=== PATIENT | female | born 1995 | race Caucasian/White ===

== ENCOUNTER 2019-02-18 18:53 | Emergency (ER) | payer OTHER ==
[2019-02-18 19:00] VITALS: RESP 18
--- NOTE | 2019-02-18 20:27 | XR ---
EXAMINATION TYPE: XR KUB DATE OF EXAM: 02/18/2019 COMPARISON: NONE HISTORY: Chest pain TECHNIQUE: Single view upright FINDINGS: Bowel gas pattern is normal. There is no sign of intestinal obstruction or pneumoperitoneum . Fecal pattern is normal. There are no pathologic calcifications over the kidneys. Lung bases are cl ear. IMPRESSION: Nonacute abdomen.
--- NOTE | 2019-02-18 20:27 | XR ---
EXAMINATION TYPE: XR chest 2V DATE OF EXAM: 02/18/2019 COMPARISON: NONE HISTORY: Chest pain TECHNIQUE: Frontal and lateral views of the chest are obtained. FINDINGS: Heart and mediastinum are normal. Lungs are clear. Diaphragm is normal. Bony thorax appear s normal. IMPRESSION: Normal chest.
[2019-02-18 20:31] LABS: Appearance,Urine Clear (Clear); Bacteria,Urine Rare /hpf; Bilirubin,Urine Negative (Negative); Blood,Urine Moderate (Negative); Color,Urine Yellow; Glucose,Urine (UA) Negative (Negative); Ketones,Urine Negative (Negative); Leukocyte Esterase,Urine Small (Negative); Mucus,Urine Rare /hpf; Nitrite,Urine Negative (Negative); PH, Urine 5.5 (5.0-8.0); Protein,Urine Negative (Negative); RBC,Urine 2 /hpf (0-5); Specific Gravity,Urine 1.016 (1.001-1.035); Squamous Epithelial Cell,Urine 4 /hpf (0-4); Urobilinogen,Urine <2.0 mg/dL (<2.0); WBC,Urine 6 /hpf (0-5)
--- NOTE | 2019-02-18 21:03 | ED ---
General Adult HPI - General Chief complaint: Recheck/Abnormal Lab/Rx Stated complaint: Chest Pain, Abd Pain Time Seen by Provider: 02/18/19 19:05 Source: patient Mode of arrival: ambulatory Limitations: no limitations - History of Present Illness Initial comments: 23-year-old female patient was sent over from [facility] for evaluation of elevated blood pressure. Patient states she initially presented to urgent care due to intermittent abdominal pain for the last 2 weeks. Patient states she has been intermittently having burning discomfort to the abdomen. Patient states she is passing gas and having normal bowel movements. States she has bowel movement roughly every other day. States that she did have 2 periods this month but denies any chance of . She did have negative test at the urgent care. She denies any fever or chills. Denies any nausea or vomiting. Patient states when he told her blood pressure was elevated and that she could have heart attack she became quite anxious and began having chest discomfort as well. Patient believes this may be related to anxiety. Denies any shortness of breath, dizziness, weakness. Patient denies any recent rash, diarrhea, constipation, back pain, numbness, tingling, hematuria, dysuria, urinary urgency, urinary frequency, headache, visual changes, or any other complaints. - Related Data Home Medications Medication Instructions Recorded Confirmed No Known Home Medications 02/18/19 02/18/19 Allergies Allergy/AdvReac Type Severity Reaction Status Date / Time No Known Allergies Allergy Verified 02/18/19 20:13 Review of Systems ROS Statement: Those systems with pertinent positive or pertinent negative responses have been documented in the HPI. ROS Other: All systems not noted in ROS Statement are negative. Past Medical History Past Medical History: No Reported History History of Any Multi-Drug Resistant Organisms: None Reported Past Surgical History: No Surgical Hx Reported Past Psychological History: No Psychological Hx Reported Smoking Status: Never smoker Past Alcohol Use History: None Reported Past Drug Use History: None Reported General Exam Limitations: no limitations General appearance: alert, in no apparent distress, other (Physical well- developed, well-nourished adult female patient in no acute distress. Vital signs upon presentation are temperature 98.6F, pulse 107, respirations 18, blood pressure 113/77, pulse ox 100% on room air.) Eye exam: Present: normal appearance, PERRL, EOMI. Absent: scleral icterus, conjunctival injection, periorbital swelling ENT exam: Present: normal exam, normal oropharynx, mucous membranes moist Respiratory exam: Present: normal lung sounds bilaterally. Absent: respiratory distress, wheezes, rales, rhonchi, stridor Cardiovascular Exam: Present: regular rate, normal rhythm, normal heart sounds. Absent: systolic murmur, diastolic murmur, rubs, gallop, clicks GI/Abdominal exam: Present: soft, normal bowel sounds. Absent: distended, tenderness, guarding, rebound, rigid Neurological exam: Present: alert, oriented X3, CN II-XII intact Psychiatric exam: Present: normal affect, normal mood Skin exam: Present: warm, dry, intact, normal color. Absent: rash Course Vital Signs 02/18/19 02/18/19 18:54 21:15 Temperature 98.6 F 98.2 F Pulse Rate 107 H 90 Respiratory 18 18 Rate Blood Pressure 113/77 129/78 O2 Sat by Pulse 100 100 Oximetry EKG Findings - EKG Comments: EKG Findings:: EKG obtained at 1935 shows normal sinus rhythm with a ventricular rate of 86, IA interval 138, QRS duration 100, QT 380, QTc 454. No evidence of ST elevation or depression. Medical Decision Making - Medical Decision Making 23-year-old female patient presented to the emergency department today for evaluation of chest pain and shortness of breath that started after becoming anxious. Patient was seen by urgent care and evaluated for intermittent and burning abdominal pain. Patient is asymptomatic upon arrival. Vital signs are stable. EKG shows normal sinus rhythm. X-ray of the chest and abdomen were obtained and showed no acute abnormalities. Patient believes symptoms are related to anxiety. We did discuss her abdominal pain and discussed that it could be related to bowel movements. She is instructed to follow-up with her primary care physician should the pain return. Return parameters were discussed in detail. She verbalizes understanding and agrees with this plan. - Lab Data Lab Results 02/18/19 02/18/19 Range/Units 20:08 20:08 Urine Color Yellow Urine Appearance Clear (Clear) Urine pH 5.5 (5.0-8.0) Ur Specific [place] 1.016 (1.001-1.035) Urine Protein Negative (Negative) Urine Glucose (UA) Negative (Negative) Urine Ketones Negative (Negative) Urine Blood Moderate H (Negative) Urine Nitrite Negative (Negative) Urine Bilirubin Negative (Negative) Urine Urobilinogen <2.0 (<2.0) mg/dL Ur Leukocyte Esterase Small H (Negative) Urine RBC 2 (0-5) /hpf Urine WBC 6 H (0-5) /hpf Ur Squamous Epith Cells 4 (0-4) /hpf Urine Bacteria Rare H (None) /hpf Urine Mucus Rare H (None) /hpf Urine HCG, Qual Not Detected (Not Detectd) - Radiology Data Radiology results: report reviewed Two-view x-ray of the chest is obtained. Report was reviewed in its entirety. Impression by Dr. Betancourt shows normal chest. KUB x-ray of the abdomen is obtained. Report was reviewed in its entirety. Impression by Dr. Betancourt shows nonacute abdomen. Disposition Clinical Impression: Anxiety, Abdominal pain Disposition: HOME SELF-CARE Condition: Good Instructions (If sedation given, give patient instructions): Abdominal Pain (ED), Anxiety (ED) Additional Instructions: Follow-up with her primary care physician for recheck in 1-2 days. Return to the emergency department immediately for any new, worsening, or concerning symptoms. Is patient prescribed a controlled substance at d/c from ED?: No Referrals: None,Stated [Primary Care Provider] - 1-2 days Time of Disposition: 21:03
[2019-02-18 21:16] VITALS: BP 129/78; PULSE 90; TEMP 98.2
== END 2019-02-18 21:15 | disposition home or self-care (01) ==
LOC: EC 18:53
DX: F41.9 Anxiety disorder, unspecified (principal); R10.9 Unspecified abdominal pain
CPT/HCPCS: 71046; 74018; 81001; 81025; 93005; 99285

== ENCOUNTER 2020-11-09 23:24 | Inpatient (IN) | payer OTHER ==
[2020-11-09] MEDS ORDERED: SODIUM CHLORIDE 0.9% 1,000 ML IV STA (23:50)
[2020-11-09] MEDS ORDERED: ONDANSETRON 4 MG/2 ML VIAL IVP STA (23:50)
[2020-11-09] MEDS ORDERED: KETOROLAC 15 MG/ML 1 ML VIAL IVP STA (23:50)
[2020-11-09] MEDS ORDERED: HYDROmorphone 0.5 MG/0.5 ML SYRINGE IVP STA (23:50)
--- NOTE | 2020-11-10 00:11 | ED ---
Abdominal Pain HPI - General Chief Complaint: Abdominal Pain Stated Complaint: LT flank pain, vomiting Time Seen by Provider: 11/09/20 23:36 Source: patient Mode of arrival: ambulatory Limitations: no limitations - History of Present Illness Initial Comments: 25 -year-old female patient presents to the emergency department today for evaluation of left flank pain and left-sided abdominal pain. Patient states symptoms started 3-4 days ago and has been persistent. Patient states the pain has moved from the middle of her back around to the left side of her abdomen. States she has had nausea and vomiting associated over last night and through today. Has been unable to keep down any food or fluids today. Reports decreased urine output. Reports brown discoloration to urine. Denies abnormal vaginal bleeding or discharge. Denies taking any medication for her symptoms. She denies any fever or chills. Denies history of similar symptoms. Denies chance of . Patient denies any recent rash, cough, shortness of breath, chest pain, diarrhea, constipation, back pain, numbness, tingling, dizziness, weakness, headache, visual changes, or any other complaints. - Related Data Home Medications Medication Instructions Recorded Confirmed No Known Home Medications 02/18/19 02/18/19 Allergies Allergy/AdvReac Type Severity Reaction Status Date / Time No Known Allergies Allergy Verified 11/09/20 23:32 Review of Systems ROS Statement: Those systems with pertinent positive or pertinent negative responses have been documented in the HPI. ROS Other: All systems not noted in ROS Statement are negative. Past Medical History Past Medical History: No Reported History History of Any Multi-Drug Resistant Organisms: None Reported Past Surgical History: No Surgical Hx Reported Past Psychological History: No Psychological Hx Reported Smoking Status: Never smoker Past Alcohol Use History: None Reported Past Drug Use History: None Reported General Exam Limitations: no limitations General appearance: alert, in no apparent distress, other (This is a well- developed, well-nourished adult female patient in no acute distress.) Eye exam: Present: normal appearance, PERRL, EOMI. Absent: scleral icterus, conjunctival injection, periorbital swelling ENT exam: Present: normal exam, normal oropharynx, mucous membranes moist Respiratory exam: Present: normal lung sounds bilaterally. Absent: respiratory distress, wheezes, rales, rhonchi, stridor Cardiovascular Exam: Present: normal rhythm, tachycardia, normal heart sounds. Absent: systolic murmur, diastolic murmur, rubs, gallop, clicks GI/Abdominal exam: Present: soft, tenderness (mild left-sided), normal bowel sounds. Absent: distended, guarding, rebound, rigid Back exam: Present: normal inspection, CVA tenderness (L). Absent: CVA tenderness (R) Neurological exam: Present: alert, oriented X3, CN II-XII intact Psychiatric exam: Present: normal affect, normal mood Skin exam: Present: warm, dry, intact, normal color. Absent: rash Course Vital Signs 11/09/20 11/10/20 23:28 02:29 Temperature 99.5 F 98.7 F Pulse Rate 110 H 96 Respiratory 19 16 Rate Blood Pressure 134/90 115/76 O2 Sat by Pulse 100 99 Oximetry Medical Decision Making - Medical Decision Making 25-year-old female patient presents to the emergency department today for evaluation of left flank and abdominal pain for the last 4 days. Physical examination did reveal left CVA tenderness mild left abdominal tenderness. Labs reviewed and did reveal white blood cell count 18.1 with neutrophils of 16.1. Potassium is 5.3. Urinalysis shows cloudy appearance with specific gravity 1.041, 1+ protein, 1+ ketones, large amount of blood. Small leukocyte esterase, greater than 182 red blood cells, 19 white blood cells. Rare bacteria. Moderate mucus. HCG is negative. Did discuss the case with on-call urologist Dr. Ni he does recommend admission with IV antibiotics at this time. We will repeat CBC in the morning. Patient was given 2 g of IV Rocephin. She is resting more promptly after IV fluids and pain medication. She is agreeable with this plan. Case discussed with my attending Dr. Aguilar. - Lab Data Result diagrams: 11/10/20 00:25 11/10/20 00:25 Lab Results 11/09/20 11/10/20 11/10/20 Range/Units 23:52 00:25 00:25 WBC 18.1 H (3.8-10.6) k/uL RBC 4.59 (3.80-5.40) m/uL Hgb 14.3 (11.4-16.0) gm/dL Hct 42.7 (34.0-46.0) % MCV 93.1 (80.0-100.0) fL MCH 31.2 (25.0-35.0) pg MCHC 33.5 (31.0-37.0) g/dL RDW 13.2 (11.5-15.5) % Plt Count 185 (150-450) k/uL MPV 8.1 Neutrophils % 89 % Lymphocytes % 5 % Monocytes % 4 % Eosinophils % 1 % Basophils % 0 % Neutrophils # 16.1 H (1.3-7.7) k/uL Lymphocytes # 0.9 L (1.0-4.8) k/uL Monocytes # 0.7 (0-1.0) k/uL Eosinophils # 0.2 (0-0.7) k/uL Basophils # 0.1 (0-0.2) k/uL Sodium 139 (137-145) mmol/L Potassium 5.3 H (3.5-5.1) mmol/L Chloride 104 (98-107) mmol/L Carbon Dioxide 21 L (22-30) mmol/L Anion Gap 14 mmol/L BUN 15 (7-17) mg/dL Creatinine 1.01 (0.52-1.04) mg/dL Est GFR (CKD-EPI)AfAm 88 (>60 ml/min/1.73 sqM) Est GFR (CKD-EPI)NonAf 77 (>60 ml/min/1.73 sqM) Glucose 110 H (74-99) mg/dL Calcium 9.8 (8.4-10.2) mg/dL Total Bilirubin 0.8 (0.2-1.3) mg/dL AST 33 (14-36) U/L ALT 14 (4-34) U/L Alkaline Phosphatase 87 (38-126) U/L Total Protein 8.4 H (6.3-8.2) g/dL Albumin 5.2 H (3.5-5.0) g/dL Lipase 41 (23-300) U/L Urine Color Urine Appearance (Clear) Urine pH (5.0-8.0) Ur Specific [place] (1.001-1.035) Urine Protein (Negative) Urine Glucose (UA) (Negative) Urine Ketones (Negative) Urine Blood (Negative) Urine Nitrite (Negative) Urine Bilirubin (Negative) Urine Urobilinogen (<2.0) mg/dL Ur Leukocyte Esterase (Negative) Urine RBC (0-5) /hpf Urine WBC (0-5) /hpf Ur Squamous Epith Cells (0-4) /hpf Urine Bacteria (None) /hpf Urine Mucus (None) /hpf Urine HCG, Qual (Not Detectd) 11/10/20 11/10/20 Range/Units 00:25 00:25 WBC (3.8-10.6) k/uL RBC (3.80-5.40) m/uL Hgb (11.4-16.0) gm/dL Hct (34.0-46.0) % MCV (80.0-100.0) fL MCH (25.0-35.0) pg MCHC (31.0-37.0) g/dL RDW (11.5-15.5) % Plt Count (150-450) k/uL MPV Neutrophils % % Lymphocytes % % Monocytes % % Eosinophils % % Basophils % % Neutrophils # (1.3-7.7) k/uL Lymphocytes # (1.0-4.8) k/uL Monocytes # (0-1.0) k/uL Eosinophils # (0-0.7) k/uL Basophils # (0-0.2) k/uL Sodium (137-145) mmol/L Potassium (3.5-5.1) mmol/L Chloride (98-107) mmol/L Carbon Dioxide (22-30) mmol/L Anion Gap mmol/L BUN (7-17) mg/dL Creatinine (0.52-1.04) mg/dL Est GFR (CKD-EPI)AfAm (>60 ml/min/1.73 sqM) Est GFR (CKD-EPI)NonAf (>60 ml/min/1.73 sqM) Glucose (74-99) mg/dL Calcium (8.4-10.2) mg/dL Total Bilirubin (0.2-1.3) mg/dL AST (14-36) U/L ALT (4-34) U/L Alkaline Phosphatase (38-126) U/L Total Protein (6.3-8.2) g/dL Albumin (3.5-5.0) g/dL Lipase (23-300) U/L Urine Color Yellow Urine Appearance Cloudy H (Clear) Urine pH 6.5 (5.0-8.0) Ur Specific [place] 1.041 H (1.001-1.035) Urine Protein 1+ H (Negative) Urine Glucose (UA) Negative (Negative) Urine Ketones 1+ H (Negative) Urine Blood Large H (Negative) Urine Nitrite Negative (Negative) Urine Bilirubin Negative (Negative) Urine Urobilinogen 2.0 (<2.0) mg/dL Ur Leukocyte Esterase Small H (Negative) Urine RBC >182 H (0-5) /hpf Urine WBC 19 H (0-5) /hpf Ur Squamous Epith Cells <1 (0-4) /hpf Urine Bacteria Rare H (None) /hpf Urine Mucus Moderate H (None) /hpf Urine HCG, Qual Not Detected (Not Detectd) - Radiology Data Radiology results: report reviewed, image reviewed CT abdomen and pelvis without contrast was obtained. Report was reviewed in its entirety. Impression by Dr. Vazquez shows 4.2 mm distal left ureteral stone noted with proximal [id number] left hydroureteronephrosis, perinephric and periureteral fat stranding. Disposition Clinical Impression: Left ureteral stone, Leukocytosis Disposition: ADMITTED IP TO THIS [facility] Condition: Serious Decision to Admit Reason: Admit from EC Decision Date: 11/10/20 Decision Time: 01:48
[2020-11-10 00:38] LABS: Basophils # (A) 0.1 k/uL (0-0.2); Basophils % (A) 0 %; Eosinophils # (A) 0.2 k/uL (0-0.7); Eosinophils % (A) 1 %; HCT 42.7 % (34.0-46.0); HGB 14.3 gm/dL (11.4-16.0); Lymphocytes # (A) 0.9 k/uL (1.0-4.8); Lymphocytes % (A) 5 %; MCH 31.2 pg (25.0-35.0); MCHC 33.5 g/dL (31.0-37.0); MCV 93.1 fL (80.0-100.0); Mean Platelet Volume 8.1; Monocytes # (A) 0.7 k/uL (0-1.0); Monocytes % (A) 4 %; Neutrophils # (A) 16.1 k/uL (1.3-7.7); Neutrophils % (A) 89 %; Platelet Count 185 k/uL (150-450); RBC 4.59 m/uL (3.80-5.40); RDW 13.2 % (11.5-15.5); WBC 18.1 k/uL (3.8-10.6)
[2020-11-10 00:49] LABS: Appearance,Urine Cloudy (Clear); Bacteria,Urine Rare /hpf; Bilirubin,Urine Negative (Negative); Blood,Urine Large (Negative); Color,Urine Yellow; Glucose,Urine (UA) Negative (Negative); Ketones,Urine 1+ (Negative); Leukocyte Esterase,Urine Small (Negative); Mucus,Urine Moderate /hpf; Nitrite,Urine Negative (Negative); PH, Urine 6.5 (5.0-8.0); Protein,Urine 1+ (Negative); RBC,Urine >182 /hpf (0-5); Specific Gravity,Urine 1.041 (1.001-1.035); Squamous Epithelial Cell,Urine <1 /hpf (0-4); WBC,Urine 19 /hpf (0-5)
[2020-11-10 00:55] LABS: Calcium 9.8 mg/dL (8.4-10.2); Total Bilirubin 0.8 mg/dL (0.2-1.3)
[2020-11-10 01:12] LABS: Potassium 5.3 mmol/L (3.5-5.1); Total Protein 8.4 g/dL (6.3-8.2)
[2020-11-10 01:13] LABS: Albumin 5.2 g/dL (3.5-5.0)
--- NOTE | 2020-11-10 01:29 | CT ---
EXAM: CT Abdomen and Pelvis Without Intravenous Contrast CLINICAL HISTORY: ITS.REASON CT Reason: Left flank pain TECHNIQUE: Axial computed tomography images of the abdomen and pelvis without intravenous contrast. CTDI is 6.27 mGy and DLP is 351.8 mGy-cm. This CT exam was performed using one or more of the following dose reduction techniques: automated exposure control, adjustment of the mA and/or kV according to patient size, and/or use of iterative reconstruction technique. COMPARISON: No relevant prior studies available. FINDINGS: Lung bases: Unremarkable. No mass. No consolidation. ABDOMEN: Liver: Unremarkable. Gallbladder and bile ducts: Unremarkable. No calcified stones. No ductal dilation. Pancreas: Unremarkable. No ductal dilation. Spleen: Unremarkable. No splenomegaly. Adrenals: Unremarkable. No mass. Kidneys and ureters: 4.2 mm distal left ureteral stone noted with proximal mild to moderate left hydroureteronephrosis, perinephric and periureteral fat stranding. The right kidney is unremarkable with potential punctate nonobstructive nephrolithiasis suggested inferiorly. No right hydronephrosis. Stomach and bowel: Evaluation of the bowel mucosa is slightly limited without contrast; however, no definite focal asymmetry suggested. No evidence for bowel obstruction. PELVIS: Appendix: No findings to suggest acute appendicitis. Bladder: The bladder is decompressed, limiting evaluation. No definite bladder wall thickening. No stones. Reproductive: Unremarkable as visualized. ABDOMEN and PELVIS: Intraperitoneal space: Unremarkable. No free air. No significant fluid collection. Bones/joints: No acute fracture. No dislocation. Soft tissues: Unremarkable. Vasculature: Unremarkable. No abdominal aortic aneurysm. Lymph nodes: Unremarkable. No enlarged lymph nodes. IMPRESSION: 4.2 mm distal left ureteral stone noted with proximal mild to moderate left hydroureteronephrosis, perinephric and periureteral fat stranding.
[2020-11-10] MEDS ORDERED: NALOXONE 0.4 MG/ML 1 ML VIAL IV PRN (01:46)
[2020-11-10] MEDS ORDERED: HYDROmorphone 0.5 MG/0.5 ML SYRINGE IVP PRN (01:46)
[2020-11-10] MEDS ORDERED: KETOROLAC 15 MG/ML 1 ML VIAL IVP PRN (01:46)
[2020-11-10] MEDS ORDERED: ONDANSETRON 4 MG/2 ML VIAL IVP PRN (01:46)
[2020-11-10] MEDS: SODIUM CHLORIDE 0.9% 1,000 ML IV SCH ×2 (02:15→15:35)
[2020-11-10] MEDS ORDERED: TAMSULOSIN 0.4 MG CAP.ER.24H PO SCH (08:30)
[2020-11-10 09:53] VITALS: BMI 24.3
--- NOTE | 2020-11-10 12:52 | P.GSHP ---
History of Present Illness H&P Date: 11/10/20 Chief Complaint: left ureteral calculi 25 yo female with hx of 4 mm left sided ureteral stone. She presented to the ED with left flank pain, she underwent a CT that showed a 4 mm stone, on presentation she was tachycardic, had leucocytosis at 18.1 and her UA was concerning for UTI, no previous hx of kidney stones. Denies any dysuria or gross hematuria. Indicates her pain has improved this am. But indicates she has been complaining of weakness and fatigue. - Constitutional Constitutional: Reports fatigue, Reports weakness, Denies chills, Denies fever - EENT Ears, nose, mouth and throat: Denies headache, Denies sore throat - Cardiovascular Cardiovascular: Denies chest pain, Denies shortness of breath - Respiratory Respiratory: Denies cough, Denies 7 - Gastrointestinal Gastrointestinal: Denies abdominal pain, Denies diarrhea, Denies nausea, Denies vomiting - Genitourinary (Female) Genitourinary: Reports flank pain - Genitourinary (Male) Genitourinary: Reports flank pain - Musculoskeletal Musculoskeletal: Denies myalgias - Integumentary Integumentary: Denies pruritus, Denies rash - Neurological Neurological: Denies numbness, Denies weakness Past Medical History Past Medical History: No Reported History History of Any Multi-Drug Resistant Organisms: None Reported Past Surgical History: No Surgical Hx Reported Past Psychological History: No Psychological Hx Reported Smoking Status: Never smoker Past Alcohol Use History: None Reported Past Drug Use History: None Reported Medications and Allergies Home Medications Medication Instructions Recorded Confirmed Type Sertraline [Zoloft] 200 mg PO DAILY 11/10/20 11/10/20 History Allergies Allergy/AdvReac Type Severity Reaction Status Date / Time No Known Allergies Allergy Verified 11/10/20 08:34 Surgical - Exam Vital Signs Temp Pulse Resp BP Pulse Ox 99.5 F 110 H 19 134/90 100 11/09/20 23:28 11/09/20 23:28 11/09/20 23:28 11/09/20 23:28 11/09/20 23:28 - General well developed, well nourished, no distress, moderate pain - Eyes PERRL, normal ocular movement - ENT normal nares, normal mucosa - Respiratory normal expansion, normal respiratory effort - Abdomen Abdomen: soft, non tender - Psychiatric oriented to time, oriented to person, oriented to place Results - Labs 11/10/20 00:25 11/10/20 00:25 Abnormal Lab Results - Last 24 Hours (Table) 11/10/20 11/10/20 11/10/20 Range/Units 00:25 00:25 00:25 WBC 18.1 H (3.8-10.6) k/uL Neutrophils # 16.1 H (1.3-7.7) k/uL Lymphocytes # 0.9 L (1.0-4.8) k/uL Potassium 5.3 H (3.5-5.1) mmol/L Carbon Dioxide 21 L (22-30) mmol/L Glucose 110 H (74-99) mg/dL Total Protein 8.4 H (6.3-8.2) g/dL Albumin 5.2 H (3.5-5.0) g/dL Urine Appearance Cloudy H (Clear) Ur Specific [place] 1.041 H (1.001-1.035) Urine Protein 1+ H (Negative) Urine Ketones 1+ H (Negative) Urine Blood Large H (Negative) Ur Leukocyte Esterase Small H (Negative) Urine RBC >182 H (0-5) /hpf Urine WBC 19 H (0-5) /hpf Urine Bacteria Rare H (None) /hpf Urine Mucus Moderate H (None) /hpf Microbiology - Last 24 Hours (Table) 11/10/20 00:25 Urine Culture - Preliminary Urine,Voided Diabetes panel 11/10/20 Range/Units 00:25 Sodium 139 (137-145) mmol/L Potassium 5.3 H (3.5-5.1) mmol/L Chloride 104 (98-107) mmol/L Carbon Dioxide 21 L (22-30) mmol/L BUN 15 (7-17) mg/dL Creatinine 1.01 (0.52-1.04) mg/dL Glucose 110 H (74-99) mg/dL Calcium 9.8 (8.4-10.2) mg/dL AST 33 (14-36) U/L ALT 14 (4-34) U/L Alkaline Phosphatase 87 (38-126) U/L Total Protein 8.4 H (6.3-8.2) g/dL Albumin 5.2 H (3.5-5.0) g/dL Calcium panel 11/10/20 Range/Units 00:25 Calcium 9.8 (8.4-10.2) mg/dL Albumin 5.2 H (3.5-5.0) g/dL Pituitary panel 11/10/20 Range/Units 00:25 Sodium 139 (137-145) mmol/L Potassium 5.3 H (3.5-5.1) mmol/L Chloride 104 (98-107) mmol/L Carbon Dioxide 21 L (22-30) mmol/L BUN 15 (7-17) mg/dL Creatinine 1.01 (0.52-1.04) mg/dL Glucose 110 H (74-99) mg/dL Calcium 9.8 (8.4-10.2) mg/dL Adrenal panel 11/10/20 Range/Units 00:25 Sodium 139 (137-145) mmol/L Potassium 5.3 H (3.5-5.1) mmol/L Chloride 104 (98-107) mmol/L Carbon Dioxide 21 L (22-30) mmol/L BUN 15 (7-17) mg/dL Creatinine 1.01 (0.52-1.04) mg/dL Glucose 110 H (74-99) mg/dL Calcium 9.8 (8.4-10.2) mg/dL Total Bilirubin 0.8 (0.2-1.3) mg/dL AST 33 (14-36) U/L ALT 14 (4-34) U/L Alkaline Phosphatase 87 (38-126) U/L Total Protein 8.4 H (6.3-8.2) g/dL Albumin 5.2 H (3.5-5.0) g/dL Assessment and Plan Assessment: 25 yo female presents to the ED with 4 mm left sided ureteral stone, on presentation she was tachycardic, had elevation in white count is 18.1. Her UA is concerning for UTI. Discussed with her given this finding I recommend proceeding stent placement. Discussed the risk of bleeding and infection. Discussed with her this is not a definitive treatment for stone, and she will need a ureteroscopy in the future. Plan: OR for left stent placement
[2020-11-10] MEDS ORDERED: IV FLUID CONTINUATION 1,000 ML IV ONE ×2 (12:57)
[2020-11-10] MEDS ORDERED: PROPOFOL 10 MG/ML 20 ML VIAL IV ONE (13:10)
[2020-11-10] MEDS ORDERED: KETAMINE 10 MG/ML 20 ML VIAL ONE (13:10)
[2020-11-10] MEDS ORDERED: MIDAZOLAM 2 MG/2 ML VIAL ONE (13:10)
[2020-11-10] MEDS ORDERED: fentaNYL (PF) 50 MCG/ML 2 ML AMP ONE (13:10)
[2020-11-10] MEDS ORDERED: ONDANSETRON 4 MG/2 ML VIAL ONE (13:10)
[2020-11-10] MEDS ORDERED: SODIUM CHLORIDE 0.9% 50 ML with GENTAMICIN 80 MG IV ONE ×2 (13:19)
[2020-11-10 13:38] VITALS: TEMP 97
--- NOTE | 2020-11-10 13:49 | P.OP ---
Date of Procedure: 11/10/20 Preoperative Diagnosis: Left ureteral calculi Postoperative Diagnosis: Same Procedure(s) Performed: Cystoscopy, left ureteral stent placement Implants: 6-Tunisian by 24 cm stent Anesthesia: UBALDO Surgeon: Lee Ni Estimated Blood Loss (ml): 1 Pathology: none sent Condition: stable Disposition: PACU Indications for Procedure: This is a 25-year-old female that presented with 4.6 mm left-sided ureteral stone. She had evidence of UTI, leukocytosis on presentation. Discussed with her the option of stent placement given her symptoms. Discussed the risk which includes but not limited to bleeding, infection. Discussed with her also this is not a permanent fix for her stone and she will require ureteroscopy in the future. She understood all the risk and agreed to proceed with left-sided stent placement Description of Procedure: Patient was brought to the operating room, sedation was administered. A cystoscopy fitted with 22-Tunisian sheath was inserted per urethra, cystoscopy was performed showed no abnormality within the bladder. Attention was then carried to the left ureteral orifice which was intubated with a 6-Tunisian open-ended catheter. A sensor wire was advanced through the catheter and the catheter was removed with the wire in place. Next a ureteral stent was passed over the wire, the proximal curl was visualized on fluoroscopy and the distal curl was visualized using the cystoscope. Cloudy urine drained from the stent. The patient tolerated the procedure well was taken to PACU in stable condition
--- NOTE | 2020-11-10 13:57 | FL ---
Fluoroscopy History: LT STENT PLACEMENT. Fluoroscopy provided for left stent placement.
--- NOTE | 2020-11-10 16:22 | P.DS ---
Providers Date of admission: 11/10/20 01:48 Attending physician: Lee Ni MD Primary care physician: Stated None Hospital Course: 25 yo female the presented to the hospital on 11/09 with left sided ureteral stone and UTI. She was admitted to the hospital, She underwent left sided stent placement on 11/10, please see op noted dated 11/10 for surgery details. She was discharged home following surgery with 10 days of Keflex. She will f/u in clinic in one week, at that time she will be set up for a ureteroscopy. Patient Condition at Discharge: Serious Plan - Discharge Summary Discharge Rx Participant: Yes New Discharge Prescriptions: New Ibuprofen 600 mg PO Q8H PRN #30 tab PRN Reason: Pain Cephalexin [Keflex] 500 mg PO Q8HR 10 Days #30 cap Ibuprofen 600 mg PO Q8H PRN #30 tab PRN Reason: Pain Cephalexin [Keflex] 500 mg PO Q6HR 1 Days #4 cap Cephalexin [Keflex] 500 mg PO Q8HR #30 cap No Action Sertraline [Zoloft] 200 mg PO DAILY Discharge Medication List Cephalexin [Keflex] 500 mg PO Q6HR 1 Days #4 cap 11/10/20 [Rx] Cephalexin [Keflex] 500 mg PO Q8HR #30 cap 11/10/20 [Rx] Cephalexin [Keflex] 500 mg PO Q8HR 10 Days #30 cap 11/10/20 [Rx] Ibuprofen 600 mg PO Q8H PRN #30 tab 11/10/20 [Rx] Ibuprofen 600 mg PO Q8H PRN #30 tab 11/10/20 [Rx] Sertraline [Zoloft] 200 mg PO DAILY 11/10/20 [History] Follow up Appointment(s)/Referral(s): Lee Ni MD [STAFF PHYSICIAN] - 1 Week None,Stated [Primary Care Provider] - 1-2 days Patient Instructions/Handouts: Ureteral Stent Placement (DC) Activity/Diet/Wound Care/Special Instructions: Increase fluid intake You may see some blood in the urine
[2020-11-10 17:23] VITALS: BP 103/66; PULSE 84; RESP 20
== END 2020-11-10 18:07 | disposition home or self-care (01) | DRG 660 ==
LOC: EC 23:24 → 4SSUR 11-10 01:48
PROVIDERS: ADMIT Urology; ATTEND Urology
PROC: 0T778DZ Dilation of Left Ureter with Intraluminal Device, Via Natural or Artificial Opening Endoscopic (ICD-10-PCS; principal; 2020-11-10 12:44)
DX: N20.1 Calculus of ureter (principal); N13.6 Pyonephrosis; Z20.822 Contact with and (suspected) exposure to COVID-19; Z79.899 Other long term (current) drug therapy
CPT/HCPCS: 36415; 74176; 80053; 81001; 81003; 81025; 83690; 85025; 87040; 87086; 87635; 96361; 96365; 96375; 99285

== ENCOUNTER 2020-11-29 12:15 | Day surgery (SDC) | payer OTHER ==
[2020-11-26 15:24] VITALS: BMI 24.4
--- NOTE | 2020-11-28 22:57 | P.HPIHPCON ---
History of Present Illness H&P Date: 11/28/20 Chief Complaint: left ureteral stone Ms Simon is a 25 yo female with hx of 4 mm left distal ureteral stone. She is S/P ureteral stent placement on 11/10. She presents today for definitive stone management. Discussed with her the option of ureteroscopy with holmium laser. discussed the risk of bleeding, infection and injury to the ureter. She understood all the risk and agreed to proceed with left sided ureteroscopy with holmium laser lithotripsy and stone basketting and possible stent placement Consent for Procedure: I have explained the operation/procedure to the patient, including the risks, benefits, side effects, alternative therapies (including not receiving the proposed treatment or service), the likelihood of the patient achieving his/her goals, and potential recuperation problems for the procedure/sedation/analgesia, as well as any blood products, if indicated. I also explained to the patient the risks, benefits and side effects of the alternatives, as well as the risks related to not receiving the proposed procedure, care, treatment, or services. Past Medical History Past Medical History: No Reported History Additional Past Medical History / Comment(s): kidney stones History of Any Multi-Drug Resistant Organisms: None Reported Past Surgical History: No Surgical Hx Reported Additional Past Surgical History / Comment(s): cystoscopy w/left ureteral stent 11-10-20 Past Anesthesia/Blood Transfusion Reactions: No Reported Reaction Smoking Status: Never smoker - Past Family History Mother Family Medical History: No Reported History Medications and Allergies Home Medications Medication Instructions Recorded Confirmed Type Ibuprofen 600 mg PO Q8H PRN #30 tab 11/10/20 11/26/20 Rx Sertraline [Zoloft] 200 mg PO HS 11/10/20 11/26/20 History Allergies Allergy/AdvReac Type Severity Reaction Status Date / Time No Known Allergies Allergy Verified 11/26/20 15:24 Surgical - Exam - General well nourished, no distress, no pain - Respiratory normal expansion, normal respiratory effort - Abdomen Abdomen: soft, non tender Assessment and Plan Assessment: 25 yo female with hx of 4mm left distal stone -OR for left sided ureteroscopy with holmium laser lithotripsy and stone basketting and possible stent placement
[~2020-11-29 12:15] MED LIST: DEXAMETHASONE SOD PHOSPHATE 4 MG/ML 1 ML VIAL IV ONE; HYDROmorphone 0.5 MG/0.5 ML SYRINGE IVP PRN; LACTATED RINGERS 1,000 ML IV SCH; LIDOCAINE 1% (10MG/ML) FOR IV START INTRADERMA PRN; ONDANSETRON 4 MG/2 ML VIAL IVP ONE; SCOPOLAMINE 1.5MG/72HR PATCH TRANSDERM ONE
--- NOTE | 2020-11-29 13:27 | XR ---
EXAMINATION TYPE: XR KUB DATE OF EXAM: 11/29/2020 COMPARISON: 02/18/2019 HISTORY: Pain TECHNIQUE: Single supine KUB image of the abdomen is obtained FINDINGS: Small bowel demonstrates no evidence for dilatation or air fluid levels. Gas and fecal material is seen in non-distended colon. No convincing evidence for pneumoperitoneum. No unusual calcifications. Double-J ureteral stent is noted on the left. The lung bases are clear. The osseous structures are intact. IMPRESSION: 1. Overall nonobstructive bowel gas pattern.
[2020-11-29] MEDS ORDERED: MIDAZOLAM 2 MG/2 ML VIAL IV ONE (13:55)
[2020-11-29] MEDS ORDERED: MIDAZOLAM 2 MG/2 ML VIAL ONE (15:07)
[2020-11-29] MEDS ORDERED: PROPOFOL 10 MG/ML 20 ML VIAL IV ONE (15:07)
[2020-11-29] MEDS ORDERED: LIDOCAINE 1% INJ 10MG/ML (20 ML MDV) ONE (15:07)
[2020-11-29] MEDS ORDERED: fentaNYL (PF) 50 MCG/ML 2 ML AMP ONE (15:07)
[2020-11-29] MEDS ORDERED: SUCCINYLCHOLINE CHLORIDE 100 MG/5 ML SYR IV ONE (15:07)
[2020-11-29] MEDS ORDERED: LACTATED RINGERS 1,000 ML IV ONE (15:40)
[2020-11-29] MEDS ORDERED: IOPAMIDOL-370 50ML BTL MISCELLANE ONE (15:40)
--- NOTE | 2020-11-29 15:56 | P.OP ---
Date of Procedure: 11/29/20 Preoperative Diagnosis: Left ureteral stone Postoperative Diagnosis: Same Procedure(s) Performed: Cystoscopy, left ureteroscopy, holmium laser lithotripsy, stone basketing, retrograde pyelogram and stent removal Implants: None Anesthesia: TYA Surgeon: Lee Ni Estimated Blood Loss (ml): 1 Pathology: other (Left ureteral stone) Condition: stable Disposition: PACU Indications for Procedure: Ms Simon is a 25 yo female with hx of 4 mm left distal ureteral stone. She is S/P ureteral stent placement on 11/10. She presents today for definitive stone management. Discussed with her the option of ureteroscopy with holmium laser. discussed the risk of bleeding, infection and injury to the ureter. She understood all the risk and agreed to proceed with left sided ureteroscopy with holmium laser lithotripsy and stone basketting and possible stent placement Operative Findings: Midureteral stone Description of Procedure: Patient was brought to the operating room, general anesthesia was induced. She was prepped and draped in sterile fashion and placed in dorsal lithotomy position. A cystoscopy fitted with a 21-[place] sheath was inserted per urethra, cystoscopy was performed showed no abnormality within the bladder. Attention was then carried to the left ureteral orifice, the stent was grasped and removed intact. At this time a semirigid ureteroscope was inserted per urethra and advanced up the left ureteral orifice, the stone was encountered in the mid ureter. Using the holmium laser stone was fragmented into small fragments, sizable fragments were removed using a stone basket. at this time the ureteroscope was advanced all the way up to the UPJ which showed no evidence of stone fragments or any additional stones. Retrograde pyelogram was performed through the ureteroscope which showed no additional filling defect. Pullback ureteroscopy was performed showed no sizable fragments or injury to the ureter. The bladder was emptied at the end of the case. The stone was sent for analysis. The patient tolerated the procedure well was taken to PACU in stable condition
[2020-11-29 16:10] VITALS: TEMP 97.4
--- NOTE | 2020-11-29 16:34 | FL ---
Fluoroscopy INDICATION: Cystoscopy with lithotripsy FINDINGS: Fluoroscopy time: 11 seconds. Images obtained: 1. IMPRESSIONS: 1. Documentation of fluoroscopy.
[2020-11-29 17:09] VITALS: RESP 16
[2020-11-29 17:53] VITALS: BP 113/76; PULSE 81
== END 2020-11-29 18:07 | disposition home or self-care (01) ==
LOC: OR 12:15
PROVIDERS: ATTEND Urology
DX: N20.1 Calculus of ureter (principal); Z87.442 Personal history of urinary calculi; Z96.0 Presence of urogenital implants; F41.9 Anxiety disorder, unspecified; Z79.899 Other long term (current) drug therapy
CPT/HCPCS: 84132; 82365; 74420; 74018; 52353; J2250; J1100; J0690; J2405; J2001; J3010; J0330; J2704; Q9967

== ENCOUNTER 2021-07-17 15:29 | Emergency (ER) | payer OTHER ==
[2021-07-17 16:18] VITALS: RESP 18; TEMP 98.1
[2021-07-17 17:10] LABS: Appearance,Urine Cloudy (Clear); Bacteria,Urine Many /hpf; Bilirubin,Urine Negative (Negative); Blood,Urine Large (Negative); Color,Urine Yellow; Glucose,Urine (UA) Negative (Negative); Ketones,Urine Negative (Negative); Leukocyte Esterase,Urine Large (Negative); Mucus,Urine Few /hpf; Nitrite,Urine Negative (Negative); PH, Urine 6.5 (5.0-8.0); Protein,Urine Trace (Negative); RBC,Urine 136 /hpf (0-5); Specific Gravity,Urine 1.025 (1.001-1.035); Squamous Epithelial Cell,Urine 1 /hpf (0-4); WBC,Urine 54 /hpf (0-5)
[2021-07-17] MEDS ORDERED: SODIUM CHLORIDE 0.9% 1,000 ML IV STA (19:53)
[2021-07-17] MEDS ORDERED: KETOROLAC 15 MG/ML 1 ML VIAL IVP STA (19:53)
--- NOTE | 2021-07-17 20:03 | ED ---
General Adult HPI - General Chief complaint: Abdominal Pain Stated complaint: Blood in Urine Time Seen by Provider: 07/17/21 19:12 Source: patient, RN notes reviewed Mode of arrival: ambulatory Limitations: no limitations - History of Present Illness Initial comments: 26-year-old female presents to the emergency room for a chief complaint of abdominal pain. Patient has right lower quadrant abdominal pain radiating to her back. This started earlier this morning. She has also had blood in her urine with clots. Patient had have a kidney stone removed in the past and didn't know she had a until it became infected. Patient is concerned she could've another kidney stone. Patient's sister is afraid to go to work without knowing what's going on with her and wants a CAT scan.Patient has no other complaints at this time including shortness of breath, chest pain, nausea or vomiting, headache, or visual changes. - Related Data Home Medications Medication Instructions Recorded Confirmed Sertraline [Zoloft] 200 mg PO HS 11/10/20 11/29/20 Previous Rx's Medication Instructions Recorded Ibuprofen 600 mg PO Q8H PRN #30 tab 11/10/20 Cephalexin [Keflex] 500 mg PO Q6HR 1 Days #4 cap 11/29/20 Cephalexin [Keflex] 500 mg PO BID 7 Days #14 cap 07/17/21 Allergies Allergy/AdvReac Type Severity Reaction Status Date / Time No Known Allergies Allergy Verified 07/17/21 16:15 Review of Systems ROS Statement: Those systems with pertinent positive or pertinent negative responses have been documented in the HPI. ROS Other: All systems not noted in ROS Statement are negative. Past Medical History Past Medical History: No Reported History Additional Past Medical History / Comment(s): kidney stones History of Any Multi-Drug Resistant Organisms: None Reported Past Surgical History: No Surgical Hx Reported Additional Past Surgical History / Comment(s): cystoscopy w/left ureteral stent 2 Past Anesthesia/Blood Transfusion Reactions: No Reported Reaction Past Psychological History: Anxiety, Depression Smoking Status: Never smoker Past Alcohol Use History: None Reported Past Drug Use History: None Reported - Past Family History Mother Family Medical History: No Reported History General Exam Limitations: no limitations General appearance: alert, in no apparent distress Head exam: Present: atraumatic Eye exam: Present: normal appearance, PERRL, EOMI. Absent: scleral icterus ENT exam: Present: normal exam, mucous membranes moist Neck exam: Present: normal inspection, full ROM. Absent: meningismus Respiratory exam: Present: normal lung sounds bilaterally. Absent: respiratory distress, wheezes Cardiovascular Exam: Present: regular rate, normal rhythm, normal heart sounds GI/Abdominal exam: Present: soft, normal bowel sounds. Absent: distended, tenderness Back exam: Absent: CVA tenderness (R), CVA tenderness (L) Course Vital Signs 07/17/21 16:15 Temperature 98.1 F Pulse Rate 104 H Respiratory 18 Rate Blood Pressure 141/76 O2 Sat by Pulse 99 Oximetry Medical Decision Making - Medical Decision Making Vitals are stable. Patient is well-appearing. No significant abdominal tenderness. CBC CMP and a marble. Urinalysis does show 54 white blood cells as well as [address] abdomen and pelvis however does not show acute abnormality. There is a small 2.3 cm right ovarian cyst. Patient's pain is a 1 out of 10. Not consistent with torsion. Patient will be treated for urinary tract infection as this is likely causing her hematuria. Patient's pain is likely multifactorial with urinary tract infection and cyst. At this time lance ent can be discharged home with primary care follow-up but is aware she needs to repeat a urine sample to ensure that the blood is resolving. - Lab Data Result diagrams: 07/17/21 20:17 07/17/21 20:17 Lab Results 07/17/21 07/17/21 07/17/21 Range/Units 16:39 16:39 20:17 WBC 10.1 (3.8-10.6) k/uL RBC 4.23 (3.80-5.40) m/uL Hgb 13.7 (11.4-16.0) gm/dL Hct 40.9 (34.0-46.0) % MCV 96.6 (80.0-100.0) fL MCH 32.3 (25.0-35.0) pg MCHC 33.5 (31.0-37.0) g/dL RDW 13.1 (11.5-15.5) % Plt Count 218 (150-450) k/uL MPV 8.0 Neutrophils % 74 % Lymphocytes % 18 % Monocytes % 4 % Eosinophils % 2 % Basophils % 1 % Neutrophils # 7.5 (1.3-7.7) k/uL Lymphocytes # 1.8 (1.0-4.8) k/uL Monocytes # 0.4 (0-1.0) k/uL Eosinophils # 0.2 (0-0.7) k/uL Basophils # 0.1 (0-0.2) k/uL Sodium (137-145) mmol/L Potassium (3.5-5.1) mmol/L Chloride (98-107) mmol/L Carbon Dioxide (22-30) mmol/L Anion Gap mmol/L BUN (7-17) mg/dL Creatinine (0.52-1.04) mg/dL Est GFR (CKD-EPI)AfAm (>60 ml/min/1.73 sqM) Est GFR (CKD-EPI)NonAf (>60 ml/min/1.73 sqM) Glucose (74-99) mg/dL Calcium (8.4-10.2) mg/dL Total Bilirubin (0.2-1.3) mg/dL AST (14-36) U/L ALT (4-34) U/L Alkaline Phosphatase (38-126) U/L Total Protein (6.3-8.2) g/dL Albumin (3.5-5.0) g/dL Amylase (30-110) U/L Lipase (23-300) U/L Urine Color Yellow Urine Appearance Cloudy H (Clear) Urine pH 6.5 (5.0-8.0) Ur Specific [place] 1.025 (1.001-1.035) Urine Protein Trace H (Negative) Urine Glucose (UA) Negative (Negative) Urine Ketones Negative (Negative) Urine Blood Large H (Negative) Urine Nitrite Negative (Negative) Urine Bilirubin Negative (Negative) Urine Urobilinogen 2.0 (<2.0) mg/dL Ur Leukocyte Esterase Large H (Negative) Urine RBC 136 H (0-5) /hpf Urine WBC 54 H (0-5) /hpf Ur Squamous Epith Cells 1 (0-4) /hpf Urine Bacteria Many H (None) /hpf Urine Mucus Few H (None) /hpf Urine HCG, Qual Not Detected (Not Detectd) 07/17/21 Range/Units 20:17 WBC (3.8-10.6) k/uL RBC (3.80-5.40) m/uL Hgb (11.4-16.0) gm/dL Hct (34.0-46.0) % MCV (80.0-100.0) fL MCH (25.0-35.0) pg MCHC (31.0-37.0) g/dL RDW (11.5-15.5) % Plt Count (150-450) k/uL MPV Neutrophils % % Lymphocytes % % Monocytes % % Eosinophils % % Basophils % % Neutrophils # (1.3-7.7) k/uL Lymphocytes # (1.0-4.8) k/uL Monocytes # (0-1.0) k/uL Eosinophils # (0-0.7) k/uL Basophils # (0-0.2) k/uL Sodium 138 (137-145) mmol/L Potassium 4.6 (3.5-5.1) mmol/L Chloride 106 (98-107) mmol/L Carbon Dioxide 22 (22-30) mmol/L Anion Gap 10 mmol/L BUN 10 (7-17) mg/dL Creatinine 0.68 (0.52-1.04) mg/dL Est GFR (CKD-EPI)AfAm >90 (>60 ml/min/1.73 sqM) Est GFR (CKD-EPI)NonAf >90 (>60 ml/min/1.73 sqM) Glucose 94 (74-99) mg/dL Calcium 9.6 (8.4-10.2) mg/dL Total Bilirubin 0.5 (0.2-1.3) mg/dL AST 27 (14-36) U/L ALT 12 (4-34) U/L Alkaline Phosphatase 91 (38-126) U/L Total Protein 7.4 (6.3-8.2) g/dL Albumin 4.5 (3.5-5.0) g/dL Amylase 67 (30-110) U/L Lipase 67 (23-300) U/L Urine Color Urine Appearance (Clear) Urine pH (5.0-8.0) Ur Specific [place] (1.001-1.035) Urine Protein (Negative) Urine Glucose (UA) (Negative) Urine Ketones (Negative) Urine Blood (Negative) Urine Nitrite (Negative) Urine Bilirubin (Negative) Urine Urobilinogen (<2.0) mg/dL Ur Leukocyte Esterase (Negative) Urine RBC (0-5) /hpf Urine WBC (0-5) /hpf Ur Squamous Epith Cells (0-4) /hpf Urine Bacteria (None) /hpf Urine Mucus (None) /hpf Urine HCG, Qual (Not Detectd) Disposition Clinical Impression: Ovarian cyst, UTI (urinary tract infection) Disposition: HOME SELF-CARE Condition: Good Instructions (If sedation given, give patient instructions): Ovarian Cyst (ED), Urinary Tract Infection in Women (ED) Additional Instructions: Take antibiotic as directed. Follow-up with your doctor in one to 2 days. Return to the emergency room for any worsening symptoms. Prescriptions: Cephalexin [Keflex] 500 mg PO BID 7 Days #14 cap Is patient prescribed a controlled substance at d/c from ED?: No Referrals: Chabrel Fletcher MD [REFERRING] - 1-2 days Time of Disposition: 22:15
[2021-07-17 20:42] LABS: Basophils # (A) 0.1 k/uL (0-0.2); Basophils % (A) 1 %; Eosinophils # (A) 0.2 k/uL (0-0.7); Eosinophils % (A) 2 %; HCT 40.9 % (34.0-46.0); HGB 13.7 gm/dL (11.4-16.0); Lymphocytes # (A) 1.8 k/uL (1.0-4.8); Lymphocytes % (A) 18 %; MCH 32.3 pg (25.0-35.0); MCHC 33.5 g/dL (31.0-37.0); MCV 96.6 fL (80.0-100.0); Monocytes # (A) 0.4 k/uL (0-1.0); Monocytes % (A) 4 %; Neutrophils # (A) 7.5 k/uL (1.3-7.7); Neutrophils % (A) 74 %; Platelet Count 218 k/uL (150-450); RBC 4.23 m/uL (3.80-5.40); RDW 13.1 % (11.5-15.5); WBC 10.1 k/uL (3.8-10.6)
[2021-07-17 21:02] LABS: ALT 12 U/L (4-34); AST 27 U/L (14-36); African American GFR (CKD) >90 (>60 ml/min/1.73 sqM); Albumin 4.5 g/dL (3.5-5.0); Alkaline Phosphatase 91 U/L (38-126); Amylase 67 U/L (30-110); Anion Gap 10 mmol/L; Blood Urea Nitrogen 10 mg/dL (7-17); Calcium 9.6 mg/dL (8.4-10.2); Carbon Dioxide 22 mmol/L (22-30); Chloride 106 mmol/L (98-107); Glucose 94 mg/dL (74-99); Lipase 67 U/L (23-300); Non-African American GFR(CKD) >90 (>60 ml/min/1.73 sqM); Potassium 4.6 mmol/L (3.5-5.1); Sodium 138 mmol/L (137-145); Total Bilirubin 0.5 mg/dL (0.2-1.3); Total Protein 7.4 g/dL (6.3-8.2)
--- NOTE | 2021-07-17 21:43 | CT ---
EXAMINATION TYPE: CT abdomen pelvis wo con DATE OF EXAM: 07/17/2021 COMPARISON: 11/10/2020 HISTORY: Abdominal pain, hematuria. Hx renal stones CT DLP: 407.2 mGycm Automated exposure control for dose reduction was used. Images obtained from the diaphragm to the floor the pelvis with no contrast. The lung bases are clear. There is no pleural effusion. Liver spleen stomach pancreas gallbladder appear intact. Bile ducts are not dilated. There is no adrenal mass. Kidneys show normal size and contour. There is no hydronephrosis. Ureters a re not dilated. There is no retroperitoneal adenopathy. Appendix is posterior and appears normal. Bladder distends smoothly. There is no inguinal hernia. There is no evidence of a pelvic mass. Uterus is anteverted. There is no sign of free fluid in the pelvis. There is probably 2.3 cm cyst on the ri ght ovary. There is no mesenteric edema. There is no ascites or free air. There is no sign of a bowel obstructio n. Lumbar vertebra have normal spacing and alignment. Posterior elements are intact. There is no mignon sulema fracture. The bony pelvis is intact. Hip joints are intact. IMPRESSION: No acute abnormality of the abdomen pelvis. Right ovarian cyst. Normal appendix. There is clearing of the left side renal obstruction compared to old exam.
[2021-07-17] MEDS ORDERED: cefTRIAXone IN SWFI 1,000 MG/10 ML SYRINGE IVP STA (22:12)
[2021-07-17 22:29] VITALS: BP 122/75; PULSE 75
== END 2021-07-17 22:29 | disposition home or self-care (01) ==
LOC: EC 15:29
DX: N83.201 Unspecified ovarian cyst, right side (principal); N39.0 Urinary tract infection, site not specified
CPT/HCPCS: 36415; 80053; 82150; 83690; 85025; 81001; 81025; 87086; 74176; 99284; 96374; 96375; 96361; J0696; J1885

== ENCOUNTER 2022-04-20 18:40 | Emergency (ER) | payer OTHER ==
[2022-04-20 19:39] VITALS: RESP 18
[2022-04-20 20:39] LABS: Basophils # (A) 0.1 k/uL (0-0.2); Basophils % (A) 1 %; Eosinophils # (A) 0.1 k/uL (0-0.7); Eosinophils % (A) 1 %; HCT 41.8 % (34.0-46.0); Lymphocytes # (A) 0.3 k/uL (1.0-4.8); Lymphocytes % (A) 5 %; MCH 32.8 pg (25.0-35.0); MCHC 33.5 g/dL (31.0-37.0); MCV 97.8 fL (80.0-100.0); Mean Platelet Volume 7.9; Monocytes # (A) 0.5 k/uL (0-1.0); Monocytes % (A) 7 %; Neutrophils # (A) 5.9 k/uL (1.3-7.7); Neutrophils % (A) 85 %; Platelet Count 146 k/uL (150-450); RBC 4.28 m/uL (3.80-5.40); RDW 13.6 % (11.5-15.5); WBC 6.9 k/uL (3.8-10.6)
--- NOTE | 2022-04-20 20:48 | XR ---
EXAMINATION TYPE: XR KUB DATE OF EXAM: 04/20/2022 COMPARISON: 11/29/2020 HISTORY: Abdominal pain TECHNIQUE: 2 views upright FINDINGS: There is no sign of intestinal obstruction or pneumoperitoneum. Fecal pattern is normal. No evidence of a mass. There are no pathologic calcifications over the kidneys. Lung bases are clear. IMPRESSION: Nonacute abdomen. No adverse change.
[2022-04-20 20:50] LABS: ALT 13 U/L (4-34); AST 21 U/L (14-36); African American GFR (CKD) >90 (>60 ml/min/1.73 sqM); Albumin 4.8 g/dL (3.5-5.0); Alkaline Phosphatase 103 U/L (38-126); Amylase 76 U/L (30-110); Anion Gap 8 mmol/L; Blood Urea Nitrogen 17 mg/dL (7-17); Calcium 9.7 mg/dL (8.4-10.2); Carbon Dioxide 25 mmol/L (22-30); Chloride 107 mmol/L (98-107); Glucose 134 mg/dL (74-99); Lipase 79 U/L (23-300); Non-African American GFR(CKD) 78 (>60 ml/min/1.73 sqM); Potassium 4.1 mmol/L (3.5-5.1); Sodium 140 mmol/L (137-145); Total Bilirubin 0.2 mg/dL (0.2-1.3); Total Protein 7.6 g/dL (6.3-8.2)
[2022-04-20 22:07] LABS: Appearance,Urine Cloudy (Clear); Bilirubin,Urine Negative (Negative); Blood,Urine Small (Negative); Calcium Oxalate Crystals,Urine Many /hpf; Color,Urine Yellow; Glucose,Urine (UA) Negative (Negative); Hyaline Casts,Urine 1 /lpf (0-2); Ketones,Urine Negative (Negative); Leukocyte Esterase,Urine Small (Negative); Mucus,Urine Occasional /hpf; Nitrite,Urine Negative (Negative); PH, Urine 5.5 (5.0-8.0); Protein,Urine Trace (Negative); Specific Gravity,Urine 1.037 (1.001-1.035); Squamous Epithelial Cell,Urine 5 /hpf (0-4); Urobilinogen,Urine <2.0 mg/dL (<2.0); WBC,Urine 6 /hpf (0-5)
--- NOTE | 2022-04-20 23:18 | ED ---
General Adult HPI - General Chief complaint: Abdominal Pain Stated complaint: Kidney Stones Time Seen by Provider: 04/20/22 23:10 Source: patient, RN notes reviewed, old records reviewed Mode of arrival: ambulatory Limitations: no limitations - History of Present Illness Initial comments: Patient presents complaining of right lower quadrant abdominal pain. States that she had hematuria couple of days ago and does have a history of kidney stones. This pain feels similar to kidney stone in the past. She states she had nausea and vomiting today with chills, no documented fever. -: days(s) (1) Location: back (right flank), abdomen (rlq) Severity scale (1-10): 7 Consistency: intermittent Associated Symptoms: fever/chills, nausea/vomiting, other (hemturia) - Related Data Previous Rx's Medication Instructions Recorded Cephalexin [Keflex] 500 mg PO BID 7 Days #14 cap 07/17/21 Ibuprofen [Motrin] 600 mg PO Q8HR PRN #30 tab 04/21/22 Tamsulosin [Flomax] 0.4 mg PO DAILY #7 cap 04/21/22 Allergies Allergy/AdvReac Type Severity Reaction Status Date / Time No Known Allergies Allergy Verified 04/20/22 19:39 Review of Systems ROS Statement: Those systems with pertinent positive or pertinent negative responses have been documented in the HPI. ROS Other: All systems not noted in ROS Statement are negative. Past Medical History Past Medical History: No Reported History Additional Past Medical History / Comment(s): kidney stones History of Any Multi-Drug Resistant Organisms: None Reported Past Surgical History: No Surgical Hx Reported Additional Past Surgical History / Comment(s): cystoscopy w/left ureteral stent 11-10-20 Past Anesthesia/Blood Transfusion Reactions: No Reported Reaction Past Psychological History: Anxiety, Depression Smoking Status: Never smoker Past Alcohol Use History: Rare Past Drug Use History: None Reported - Past Family History Mother Family Medical History: No Reported History General Exam Limitations: no limitations General appearance: alert, in no apparent distress Head exam: Present: atraumatic Eye exam: Present: normal appearance. Absent: scleral icterus, conjunctival injection Neck exam: Present: full ROM. Absent: tenderness, meningismus Respiratory exam: Absent: respiratory distress, accessory muscle use Cardiovascular Exam: Present: regular rate GI/Abdominal exam: Present: soft. Absent: distended, tenderness, guarding, rebound, rigid, mass Extremities exam: Present: normal inspection, full ROM, normal capillary refill. Absent: tenderness, pedal edema Back exam: Present: normal inspection, full ROM. Absent: tenderness, CVA tend erness (R), CVA tenderness (L) Neurological exam: Present: alert, oriented X3, normal gait Psychiatric exam: Present: normal affect, normal mood Skin exam: Present: warm, dry. Absent: cyanosis, diaphoretic, petechiae, pallor Course Vital Signs 04/20/22 04/21/22 19:30 01:15 Temperature 97.9 F 96.9 F L Pulse Rate 91 86 Respiratory 18 18 Rate Blood Pressure 121/77 144/94 O2 Sat by Pulse 100 100 Oximetry Medical Decision Making - Medical Decision Making X-ray shows a nonacute abdomen with no evidence of intestinal obstruction or pneumoperitoneum. No calcifications of the kidneys. Urinalysis shows small amount of blood, no evidence of UTI. CT shows a tiny 1 mm calculi with right sided mild hydronephrosis and hydroureter. Mild obstruction is suspected of the right kidney. Labs show no evidence of leukocytosis. Patient denies any fevers. Patient was given Toradol for pain relief. She was also given Zofran for nausea. Vital signs are stable. No vomiting in the emergency room. Patient's pain is likely related to passing a kidney stone. She was given a prescription for Flomax and Zofran and given a strainer for her urine. Instructed to follow-up with the urologist, return to the emergency room with any new or concerning symptoms including increased pain, fevers or persistent nausea vomiting. She is agreeable to being discharged home. Case discussed with Dr. Gudino. - Lab Data Result diagrams: 04/20/22 20:22 04/20/22 20:22 Lab Results 04/20/22 04/20/22 04/20/22 Range/Units 19:54 20:22 20:22 WBC 6.9 (3.8-10.6) k/uL RBC 4.28 (3.80-5.40) m/uL Hgb 14.0 (11.4-16.0) gm/dL Hct 41.8 (34.0-46.0) % MCV 97.8 (80.0-100.0) fL MCH 32.8 (25.0-35.0) pg MCHC 33.5 (31.0-37.0) g/dL RDW 13.6 (11.5-15.5) % Plt Count 146 L (150-450) k/uL MPV 7.9 Neutrophils % 85 % Lymphocytes % 5 % Monocytes % 7 % Eosinophils % 1 % Basophils % 1 % Neutrophils # 5.9 (1.3-7.7) k/uL Lymphocytes # 0.3 L (1.0-4.8) k/uL Monocytes # 0.5 (0-1.0) k/uL Eosinophils # 0.1 (0-0.7) k/uL Basophils # 0.1 (0-0.2) k/uL Sodium 140 (137-145) mmol/L Potassium 4.1 (3.5-5.1) mmol/L Chloride 107 (98-107) mmol/L Carbon Dioxide 25 (22-30) mmol/L Anion Gap 8 mmol/L BUN 17 (7-17) mg/dL Creatinine 0.98 (0.52-1.04) mg/dL Est GFR (CKD-EPI)AfAm >90 (>60 ml/min/1.73 sqM) Est GFR (CKD-EPI)NonAf 78 (>60 ml/min/1.73 sqM) Glucose 134 H (74-99) mg/dL Calcium 9.7 (8.4-10.2) mg/dL Total Bilirubin 0.2 (0.2-1.3) mg/dL AST 21 (14-36) U/L ALT 13 (4-34) U/L Alkaline Phosphatase 103 (38-126) U/L Total Protein 7.6 (6.3-8.2) g/dL Albumin 4.8 (3.5-5.0) g/dL Amylase 76 (30-110) U/L Lipase 79 (23-300) U/L Urine Color Yellow Urine Appearance Cloudy H (Clear) Urine pH 5.5 (5.0-8.0) Ur Specific [place] 1.037 H (1.001-1.035) Urine Protein Trace H (Negative) Urine Glucose (UA) Negative (Negative) Urine Ketones Negative (Negative) Urine Blood Small H (Negative) Urine Nitrite Negative (Negative) Urine Bilirubin Negative (Negative) Urine Urobilinogen <2.0 (<2.0) mg/dL Ur Leukocyte Esterase Small H (Negative) Urine WBC 6 H (0-5) /hpf Ur Squamous Epith Cells 5 H (0-4) /hpf Calcium Oxalate Crystal Many H (None) /hpf Hyaline Casts 1 (0-2) /lpf Urine Mucus Occasional H (None) /hpf Disposition Clinical Impression: Kidney stone, Hydronephrosis Disposition: HOME SELF-CARE Condition: Good Instructions (If sedation given, give patient instructions): Kidney Stones (ED) Additional Instructions: Take Tylenol and or Motrin as needed for pain. Zofran as needed for any nausea. Follow-up with the primary care doctor in urology this week. Use strainer to try to capture the stone. Return to the emergency room with any new or concerning symptoms including fevers, persistent nausea vomiting or increased pain. Prescriptions: Tamsulosin [Flomax] 0.4 mg PO DAILY #7 cap Ibuprofen [Motrin] 600 mg PO Q8HR PRN #30 tab PRN Reason: Pain Is patient prescribed a controlled substance at d/c from ED?: No Referrals: None,Stated [Primary Care Provider] - 1-2 days Moisés Pearl MD [STAFF PHYSICIAN] - 1-2 days Time of Disposition: 00:55
--- NOTE | 2022-04-21 00:14 | CT ---
EXAMINATION TYPE: CT abdomen pelvis wo con DATE OF EXAM: 04/20/2022 COMPARISON: 07/17/2021 HISTORY: RLQ pain, with hematuria, hx of kidney stones, hx cystoscopy with stent placed CT DLP: 402.9 mGycm Automated exposure control for dose reduction was used. The lung bases are clear. No pleural effusion. Heart size is normal. No pericardial effusion. Liver spleen and stomach pancreas gallbladder appear intact. The bile ducts are not dilated. There is no adrenal mass. Kidneys have normal size. There is right-sided mild hydronephrosis. There i s some fullness of the right ureter. Distal right ureter not well visualized. There are bilateral tin y 1 mm calculi in the kidneys. The uterus is anteverted. No inguinal hernia. No free fluid in the pel vis. No evidence of a pelvic mass. Appendix not well seen. No sign of thickened appendix. There is no ascites or free air. No bowel obstruction. Uterus is normal in size and contour. The lumbar vertebra have normal spacing and alignment. Posterior elements are intact. No compression fracture. IMPRESSION: There is mild right-sided hydronephrosis and hydroureter. Distal ureters are not well seen. Mild obst ruction is suspected of the right kidney and is a change compared to old exam. Appendix not well seen but no sign of a thickened appendix. There are a few tiny renal calculi..
[2022-04-21] MEDS ORDERED: KETOROLAC 15 MG/ML 1 ML VIAL IM STA (00:47)
[2022-04-21] MEDS ORDERED: ONDANSETRON ODT 4 MG TAB PO STA (00:47)
[2022-04-21] MEDS ORDERED: ONDANSETRON 4 MG ODT STARTER PACK 2 TAB BTL PO STA (00:55)
[2022-04-21 01:16] VITALS: BP 144/94; PULSE 86; TEMP 96.9
== END 2022-04-21 01:21 | disposition home or self-care (01) ==
LOC: EC 18:40
DX: N13.30 Unspecified hydronephrosis (principal)
CPT/HCPCS: 36415; 74018; 74176; 80053; 81001; 82150; 83690; 85025; 96372; 99284